=== PATIENT | male | born 1945 | race African-American/Black ===

== ENCOUNTER 2017-03-21 21:13 | Observation (INO) | payer OTHER ==
[2017-03-21 22:08] VITALS: BMI 25.8
[2017-03-21] MEDS ORDERED: SODIUM CHLORIDE 0.9% 500 ML INFUS.BAG IV ONE (22:59)
--- NOTE | 2017-03-21 22:59 | PDOC ---
History of Present Illness <Kristian Virgen - Last Filed: 03/22/17 00:10> <Radha Zhou - Last Filed: 03/22/17 01:54> - General Chief Complaint: Syncope/Near Syncope Stated Complaint: SYNCOPE/NEARSYNCOPE Time Seen by Provider: 03/21/17 22:13 Past History - Past Medical History COPD: No - Suicide/Smoking/Psychosocial Hx Smoking History: Never smoked <Kristian Virgen - Last Filed: 03/22/17 00:10> <Radha Zhou - Last Filed: 03/22/17 01:54> - Past Medical History Allergies/Adverse Reactions: Allergies Allergy/AdvReac Type Severity Reaction Status Date / Time No Known Allergies Allergy Unverified 03/21/17 22:06 *Physical Exam - Vital Signs Last Vital Signs Temp Pulse Resp BP Pulse Ox 97.8 F 78 18 106/51 98 03/21/17 22:06 03/21/17 22:06 03/21/17 22:06 03/21/17 22:06 03/21/17 22:06 <Kristian Virgen - Last Filed: 03/22/17 00:10> - Vital Signs Last Vital Signs Temp Pulse Resp BP Pulse Ox 97.8 F 78 18 106/51 99 03/21/17 22:06 03/21/17 22:06 03/21/17 22:06 03/21/17 22:06 03/21/17 22:15 <Radha Zhou - Last Filed: 03/22/17 01:54> ED Treatment Course - LABORATORY CBC & Chemistry Diagram: 03/21/17 22:45 03/21/17 22:45 <Kristian Virgen - Last Filed: 03/22/17 00:10> - LABORATORY CBC & Chemistry Diagram: 03/21/17 22:45 03/21/17 22:45 - ADDITIONAL ORDERS Additional order review: Laboratory Results 03/21/17 03/21/17 03/21/17 22:45 22:45 22:45 PT with INR 12.90 H INR 1.14 Sodium 142 Potassium 3.6 Chloride 104 Carbon Dioxide 28 Anion Gap 10 BUN 20 H Creatinine 1.2 Creat Clearance w eGFR 59.86 Random Glucose 78 Calcium 8.7 Magnesium 2.3 Total Bilirubin 0.6 AST 20 ALT 26 Alkaline Phosphatase 82 Creatine Kinase 276 Creatine Kinase Index 0.9 CK-MB (CK-2) 2.572 Troponin I 0.05 Total Protein 6.8 Albumin 3.4 03/21/17 22:45 RBC 4.26 MCV 96.7 H MCHC 33.9 RDW 15.0 MPV 9.6 Neutrophils % 86.7 H Lymphocytes % 7.6 L Monocytes % 5.2 Eosinophils % 0.4 Basophils % 0.1 - Medications Given in the ED: ED Medications Discontinued Medications Generic Name Dose Route Start Last Admin Trade Name Freq PRN Reason Stop Dose Admin Sodium Chloride 1,000 ml 03/21/17 22:59 03/21/17 23:00 Normal Saline - IV 03/21/17 23:00 1,000 ml ONCE ONE Administration <Radha Zhou - Last Filed: 03/22/17 01:54> Medical Decision Making - Medical Decision Making 03/21/17 22:59 72-year-old male with a history of hypertension and BPH presents with a syncopal episode. Vitals within normal limits. Exam within normal limits, other than dry mucous membranes. Given the absence of a prodrome, the symptoms are somewhat concerning for cardiac syncope. DDx also includes vasovagal syncope vs dehydration. Plan: -EKG -labs -cxr -ivf -obs 03/22/17 00:10 Labs wnl. XR pending. Pt to be admitted to [facility] obs for syncope. Spoke with Dr. Montanez, will obtain CTH and dimer for further work up. Case discussed in detail with admitting physician including history, physical exam and ancillary studies. Admitting physician has assumed care for the patient, will follow all pending diagnostics and will complete the evaluation and treatment. <Kristian Virgen - Last Filed: 03/22/17 00:10> - Medical Decision Making 03/22/17 01:[address] without contrast, read and reviewed by Imaging [facility]. FINDINGS: Old left frontal infarct. No hemorrhage. No mass. Chronic microvascular changes in the cerebral white matter. Osseous structures are intact THIS DOCUMENT HAS BEEN ELECTRONICALLY SIGNED Cliff Reddy MD 03/22/2017 01:48 EST <Radha Zhou - Last Filed: 03/22/17 01:54> *DC/Admit/Observation/Transfer - Discharge Dispostion Admit: Yes - Attestations Physician Attestion: 03/22/17 00:11 I, Dr. Kristian Virgen MD, attest that this document has been prepared under my direction and personally reviewed by me in its entirety. I further attest, that it accurately reflects all work, treatment, procedures and medical decision -making performed by me. <Kristian Virgen - Last Filed: 03/22/17 00:10> <Radha Zhou - Last Filed: 03/22/17 01:54> Diagnosis at time of Disposition: Syncope - Discharge Dispostion Condition at time of disposition: Stable
[2017-03-21 23:02] LABS: BASO % 0.1 % (0-2.0); EOS % 0.4 % (0-4.5); LYMPH # 0.7 (8-40); MCH 32.8 pg (25.7-33.7); MCHC 33.9 g/dl (32.0-35.9); MEAN CELL VOLUME 96.7 fl (80-96); MEAN PLT VOLUME 9.6 fl (7.5-11.1); MONO # 0.5 # (3.8-10.2); NEUT # 7.8 # (42.8-82.8); NEUT % 86.7 % (42.8-82.8); PLATELET COUNT 139 K/MM3 (134-434)
[2017-03-21 23:10] LABS: INR 1.14 (0.82-1.09); PROTHROMBIN TIME (PATIENT) 12.9 SEC (9.98-11.88)
[2017-03-21 23:30] LABS: ALBUMIN 3.4 g/dl (3.4-5.0); ANION GAP 10 (8-16); CALCIUM 8.7 mg/dL (8.5-10.1); CO2 28 mmol/L (21-32); CREATININE 1.2 mg/dL (0.7-1.3); GLUCOSE,RANDOM 78 mg/dL (74-106); SGOT/AST 20 U/L (15-37); SGPT/ALT 26 U/L (12-78)
[2017-03-21 23:34] LABS: ALK PHOS 82 U/L (45-117); BILIRUBIN,TOTAL 0.6 mg/dL (0.2-1.0); CPK 276 IU/L (39-308); TOT PROT 6.8 g/dl (6.4-8.2); TROPONIN I 0.05 ng/ml (0.00-0.05)
--- NOTE | 2017-03-22 00:16 | HP ---
Admitting History and Physical - Admission Chief Complaint: syncope and collapse History Source: Patient, Family Member Limitations to Obtaining History: No Limitations - Smoking History Smoking history: Never smoked Home Medications - Allergies Allergies/Adverse Reactions: Allergies Allergy/AdvReac Type Severity Reaction Status Date / Time No Known Allergies Allergy Unverified 03/21/17 22:06 Review of Systems - Review of Systems Constitutional: reports: No Symptoms Eyes: reports: No Symptoms HENT: reports: No Symptoms Neck: reports: No Symptoms Cardiovascular: reports: No Symptoms Respiratory: reports: No Symptoms Gastrointestinal: reports: No Symptoms Neurological: reports: Syncope Endocrine: reports: No Symptoms Physical Examination Vital Signs: Vital Signs Temperature 97.8 F 03/21/17 22:06 Pulse Rate 78 03/21/17 22:06 Respiratory Rate 18 03/21/17 22:06 Blood Pressure 106/51 03/21/17 22:06 O2 Sat by Pulse Oximetry (%) 98 03/21/17 22:06 Constitutional: Yes: Well Nourished, No Distress, Calm Eyes: Yes: WNL, Conjunctiva Clear, EOM Intact HENT: Yes: WNL, Atraumatic, Normocephalic Neck: Yes: WNL, Supple, Trachea Midline Cardiovascular: Yes: WNL, Regular Rate and Rhythm, S1, S2 (patient had bigeminal pulses on exam) Respiratory: Yes: WNL, Regular, CTA Bilaterally Gastrointestinal: Yes: WNL, Normal Bowel Sounds ...Rectal Exam: Yes: Deferred Musculoskeletal: Yes: WNL Extremities: Yes: WNL Edema: No Peripheral Pulses WNL: Yes Integumentary: Yes: WNL Neurological: Yes: WNL, Alert, Oriented ...Motor Strength: WNL Labs: CBC, BMP 03/21/17 22:45 03/21/17 22:45 Imaging - Results EKG: Image Reviewed (sinus rhythm with bigeminal APC,) Problem List - Problems (1) Syncope and collapse Assessment/Plan: hypotension vs abnormal cardiac rhythm - admit to cardiac tele - hold BP meds - monitor for abnormal cardiac rhythm - cardiology evaluation - obtain a head CT scan - obtain D-dimer to r/o thromboembolic events, if positive CTA to r/o Pulmonary embolism is warranted - trend troponin x 2 then stop Code(s): R55 - SYNCOPE AND COLLAPSE (2) Hypertension Assessment/Plan: controlled with micardis hold if BP is < 120 Code(s): I10 - ESSENTIAL (PRIMARY) HYPERTENSION (3) Bigeminal pulse Assessment/Plan: patient has premature atrial contraction with bigeminal pulse cardiology evaluation Code(s): R00.8 - OTHER ABNORMALITIES OF HEART BEAT (4) PAC (premature atrial contraction) Assessment/Plan: cardiac evaluation Code(s): I49.1 - ATRIAL PREMATURE DEPOLARIZATION
[2017-03-22 10:44] LABS: MCH 31.6 pg (25.7-33.7); MCHC 32.7 g/dl (32.0-35.9); MEAN CELL VOLUME 96.6 fl (80-96); MEAN PLT VOLUME 9.5 fl (7.5-11.1); PLATELET COUNT 142 K/MM3 (134-434); RDW 14.4 % (11.9-15.9); WHITE BLOOD COUNT 5.1 K/mm3 (4.0-10.0)
[2017-03-22 10:46] LABS: ALBUMIN 3.2 g/dl (3.4-5.0); ANION GAP 6 (8-16); BILIRUBIN,TOTAL 0.8 mg/dL (0.2-1.0); CALCIUM 8.4 mg/dL (8.5-10.1); CHOLESTEROL 140 mg/dL (50-200); CO2 28 mmol/L (21-32); CREATININE 0.8 mg/dL (0.7-1.3); GLUCOSE,RANDOM 89 mg/dL (74-106); MAGNESIUM 2.2 mg/dL (1.8-2.4); SGOT/AST 16 U/L (15-37); SGPT/ALT 24 U/L (12-78); TOT PROT 6.4 g/dl (6.4-8.2)
[2017-03-22 10:53] LABS: ALK PHOS 80 U/L (45-117); THYROID STIMULATING HORMONE 0.75 uIU/ml (0.358-3.74); TROPONIN I 0.05 ng/ml (0.00-0.05)
--- NOTE | 2017-03-22 13:08 | EKG ---
Test Reason : Blood Pressure : / mmHG Vent. Rate : 088 BPM Atrial Rate : 088 BPM P-R Int : 164 ms QRS Dur : 094 ms QT Int : 370 ms P-R-T Axes : 065 -40 010 degrees QTc Int : 447 ms SINUS RHYTHM WITH MARKED SINUS ARRHYTHMIA LEFT AXIS DEVIATION ABNORMAL ECG NO PREVIOUS ECGS AVAILABLE Confirmed by MD Jorge, Jung ([id number]) on 03/22/2017 1:08:44 PM Referred By: Confirmed By:Jung Patel MD
--- NOTE | 2017-03-22 15:28 | PN ---
Physical Exam: SUBJECTIVE: Briefly, 72yo M with only history of HTN and DM who presented to the ED after a syncopal episode. Pt remembers prior to the episode that he had breakfast and only one glass of orange juice. Pt then began to cook with his family for [employer] and when he sat down he syncopized. Pt was told when he came to by family members that he was caught and never hit the ground. Pt reports being of normal mentation after his syncopal event. Prior to his syncopal event pt denies any dizziness/lightheadedness, aura's, visual disturbances, hearing disturbances, CP/discomfort, SOB, palpiations, or any urinary incontinence. Pt denies any recent changes in his antihypertensive medications. Currently pt feels at baseline and has not had any syncopal events. OBJECTIVE: Vital Signs Period Temp Pulse Resp BP Sys/Singer Pulse Ox Last 24 Hr 97.8 F-98.1 F 58-78 16-18 106-136/51-74 98-100 GENERAL: NAD, awake, alert, and fully oriented, pleasant, laying comfortably in bed HEENT: NC/AT, No JVD, no nystagmus, EOMI, OLAYINKA, moist mucosa, no thyromegaly, no lymphadenopathy LUNGS: CTA bilaterally, no wheezes, rhonchi, or rales noted. No accessory muscle use. HEART: Regular rate with intermittant bigeminal rhythm noted, S1, S2 without murmur noted. No carotid bruits auscultated ABDOMEN: Soft, nontender, nondistended, normoactive bowel sounds, no guarding, no hepatomegaly, no masses. EXTREMITIES: 2+ DP pulses, warm, no edema. ROM intact. Cap refill <2sec NEUROLOGICAL: Cranial nerves II through XII grossly intact. Reflexes 2/4 throughout. Strength 5/5 in all limbs, sensation intact in both upper and lower extrmities. Normal speech, gait not observed. PSYCH: Normal mood, normal affect. SKIN: Warm, dry, normal turgor, no rashes or lesions noted Laboratory Results - last 24 hr 03/21/17 03/21/17 03/21/17 22:45 22:45 22:45 WBC 9.0 RBC 4.26 Hgb 14.0 Hct 41.2 MCV 96.7 H MCH 32.8 MCHC 33.9 RDW 15.0 Plt Count 139 MPV 9.6 Neutrophils % 86.7 H Lymphocytes % 7.6 L Monocytes % 5.2 Eosinophils % 0.4 Basophils % 0.1 PT with INR 12.90 H INR 1.14 D-Dimer Sodium 142 Potassium 3.6 Chloride 104 Carbon Dioxide 28 Anion Gap 10 BUN 20 H Creatinine 1.2 Creat Clearance w eGFR 59.86 Random Glucose 78 Calcium 8.7 Magnesium Total Bilirubin 0.6 AST 20 ALT 26 Alkaline Phosphatase 82 Creatine Kinase 276 Creatine Kinase Index 0.9 CK-MB (CK-2) 2.572 Troponin I 0.05 Total Protein 6.8 Albumin 3.4 Triglycerides Cholesterol Total LDL Cholesterol HDL Cholesterol TSH 03/21/17 03/22/17 03/22/17 22:45 00:23 10:00 WBC 5.1 D RBC 4.27 Hgb 13.5 Hct 41.2 MCV 96.6 H MCH 31.6 MCHC 32.7 RDW 14.4 Plt Count 142 MPV 9.5 Neutrophils % Lymphocytes % Monocytes % Eosinophils % Basophils % PT with INR INR D-Dimer 229 Sodium Potassium Chloride Carbon Dioxide Anion Gap BUN Creatinine Creat Clearance w eGFR Random Glucose Calcium Magnesium 2.3 Total Bilirubin AST ALT Alkaline Phosphatase Creatine Kinase Creatine Kinase Index CK-MB (CK-2) Troponin I Total Protein Albumin Triglycerides Cholesterol Total LDL Cholesterol HDL Cholesterol TSH 03/22/17 10:00 WBC RBC Hgb Hct MCV MCH MCHC RDW Plt Count MPV Neutrophils % Lymphocytes % Monocytes % Eosinophils % Basophils % PT with INR INR D-Dimer Sodium 141 Potassium 3.9 Chloride 107 Carbon Dioxide 28 Anion Gap 6 L BUN 21 H Creatinine 0.8 D Creat Clearance w eGFR > 60 Random Glucose 89 Calcium 8.4 L Magnesium 2.2 Total Bilirubin 0.8 D AST 16 ALT 24 Alkaline Phosphatase 80 Creatine Kinase Creatine Kinase Index CK-MB (CK-2) Troponin I 0.05 Total Protein 6.4 Albumin 3.2 L Triglycerides 35 Cholesterol 140 Total LDL Cholesterol 63 HDL Cholesterol 77 H TSH 0.75 ASSESSMENT/PLAN: 72yo M with only history of HTN and BPG presenting to ER s/p syncopal event with unknown etiology. 1) Syncope --Carotid dopplers: No significant stenosis with time delay between peak velocities; either technical abnormality, but cannot rule out arrhythmia --Electrolytes WNL --Doubt seizure activity due to history; doubt carotid hypersensitivity --Echocardiogram follow-up --Orthostatics to be done --Cardiac monitoring --D-dimer WNL at 227 --Most likely due to antihypertensive medication administration in the setting of lack of proper hydration 2) LIZET --Holding diuresis --Will repeat labs 3) BPH Continue Flomax --Monitor for signs of volume contraction FEN: Fluids: None currently needed due to PO tolerance; encourage fluid intake Electrolyte abnormalities: None currently Nutrition: Regular diet PPX: DVT - Early ambulation Dispo: D/c planning in AM if improved or without acquisitions analyst events. Pt understands and in agreement Case discussed with Dr. Johnathan Ashley, DO - Internal Medicine PGY-1 Visit type - Emergency Visit Emergency Visit: No - New Patient This patient is new to me today: Yes Date on this admission: 03/22/17 - Critical Care Critical Care patient: No
--- NOTE | 2017-03-22 17:35 | PN ---
Teaching Attending Note Name of Resident: Victor Hugo Ashley ATTENDING PHYSICIAN STATEMENT I saw and evaluated the patient. I reviewed the resident's note and discussed the case with the resident. I agree with the resident's findings and plan as documented. SUBJECTIVE:currently asymptomatic. states he was in normal state of health prior to episode. that his son in law caught him and lowered him to the floor. that he had no symptoms prior to or after the event. was not confused when waking up. denies CP, SOB, fever, chills, palpitaitons, N/V/C/D, dizzyness, blurred vision. last change to BP med was 2 years ago. states he is compliant OBJECTIVE: Last Vital Signs Temp Pulse Resp BP Pulse Ox 98.3 F 76 16 140/85 100 03/22/17 15:58 03/22/17 15:58 03/22/17 15:58 03/22/17 15:58 03/22/17 15:58 General NAD HEENT no nystagmus CV S1 S2 RRR no murmur/rub/gallop no carotid bruit Lungs CTA B/L no wheezing/rales/rhonchi ASSESSMENT AND PLAN: 72yo M with PMH HTN and BPH presented to the ER after syncope x2 1. Syncope- tele observation. cardiac enzymes neg x2. echo and carotid doppler pending. check orthostatics. possible dehydration. hold diuretic. 2. LIZET- improved. hold diuretic. repeat 3. BPH- will re-start flomax although this can also lead to orthostatic hypotension 4. DVT ppx- EAM 5. d/c planning in AM if improved. case spoke with present. verbalized understanding and agreement
[2017-03-23] MEDS ORDERED: TAMSULOSIN HCL 0.4 MG CAP.ER.24H (FP) PO SCH (08:30)
[2017-03-23 09:22] LABS: BASO % 0.4 % (0-2.0); EOS # 0.1 # (0-4.5); EOS % 1.5 % (0-4.5); LYMPH # 1.2; MCH 31.5 pg (25.7-33.7); MCHC 32.6 g/dl (32.0-35.9); MEAN CELL VOLUME 96.5 fl (80-96); MEAN PLT VOLUME 9.3 fl (7.5-11.1); MONO # 0.4 #; NEUT # 2.5 #; NEUT % 59.9 % (42.8-82.8); PLATELET COUNT 148 K/MM3 (134-434); RDW 14.7 % (11.9-15.9); WHITE BLOOD COUNT 4.2 K/mm3 (4.0-10.0)
[2017-03-23] MEDS ORDERED: LISINOPRIL 10 MG TABLET (FP) PO SCH (10:00)
[2017-03-23 10:02] LABS: ALBUMIN 3.3 g/dl (3.4-5.0); ALK PHOS 84 U/L (45-117); ANION GAP 8 (8-16); BILIRUBIN,TOTAL 0.7 mg/dL (0.2-1.0); CALCIUM 8.4 mg/dL (8.5-10.1); CO2 27 mmol/L (21-32); CREATININE 0.9 mg/dL (0.7-1.3); GLUCOSE,RANDOM 117 mg/dL (74-106); MAGNESIUM 2.1 mg/dL (1.8-2.4); SGOT/AST 19 U/L (15-37); SGPT/ALT 27 U/L (12-78); TOT PROT 6.8 g/dl (6.4-8.2)
[2017-03-23] MEDS ORDERED: METOPROLOL TARTRATE 5 MG/5 ML VIAL IVPUSH ONE (10:10)
[2017-03-23 10:59] VITALS: PULSE 98
[2017-03-23] MEDS ORDERED: METOPROLOL SUCCINATE 25 MG TAB.SR.24H (FP) PO SCH (11:45)
[2017-03-23] MEDS ORDERED: APIXABAN 5 MG TABLET PO SCH (11:45)
--- NOTE | 2017-03-23 11:51 | PN ---
Teaching Attending Note Name of Resident: Victor Hugo Ashley ATTENDING PHYSICIAN STATEMENT I saw and evaluated the patient. I reviewed the resident's note and discussed the case with the resident. I agree with the resident's findings and plan as documented. SUBJECTIVE:asymptomatic. states he felt his heart racing slightly this AM while at rest but then went away on its own. deneis CP, SOB, fever, chills, palpitations, LOC or syncope OBJECTIVE: Last Vital Signs Temp Pulse Resp BP Pulse Ox 98.2 F 98 H 16 131/84 98 03/23/17 09:00 03/23/17 09:00 03/23/17 09:00 03/23/17 09:00 03/23/17 09:00 General NAD HEENT no nystagmus CV S1 S2 irregular no murmur/rub/gallop no carotid bruit Lungs CTA B/L no wheezing/rales/rhonchi ASSESSMENT AND PLAN: 72yo M with PMH HTN and BPH presented to the ER after syncope x2 1. Syncope-likley due to afib now seen on monitor. start metoprolol XL 25mg and monitor HR. orthostatics negative 2. Afib with RVR- HR 128 this AM. improved on its own without medication. [id number] 2. counseled on starting anticoagulation. risks of medication discussed including risk of bleeding and fatal bleed and lack of reversal agent. informed him to abstain or minimize ETOH use while on medication. start metoprolol for HR control. pt is asymptomatic and HR been mostly controlled. 2. LIZET- improved. hold diuretic. resolved 3. HTN- controlled. will d/c lisinopril/HCTZ and switch to metoprolol. 3. BPH- on flomax 4. DVT ppx- EAM 5. d/c home with new medications. counseled on importance of medication compliance and follow up. cancel admission order, placed incorrectly. pt should be observation
--- NOTE | 2017-03-23 13:10 | EKG ---
Test Reason : Blood Pressure : / mmHG Vent. Rate : 090 BPM Atrial Rate : 166 BPM P-R Int : 000 ms QRS Dur : 092 ms QT Int : 344 ms P-R-T Axes : 000 -44 002 degrees QTc Int : 420 ms ATRIAL FIBRILLATION LEFT AXIS DEVIATION SEPTAL INFARCT , AGE UNDETERMINED ABNORMAL ECG WHEN COMPARED WITH ECG OF 22-MAR-2017 03:02, ATRIAL FIBRILLATION HAS REPLACED SINUS RHYTHM NONSPECIFIC T WAVE ABNORMALITY NOW EVIDENT IN LATERAL LEADS Confirmed by JAZZY GALO MD ([id number]) on 03/23/2017 1:10:13 PM Referred By: Catherine STATON Confirmed By:JAZZY GALO MD
--- NOTE | 2017-03-23 13:23 | EKG ---
Test Reason : Blood Pressure : / mmHG Vent. Rate : 077 BPM Atrial Rate : 077 BPM P-R Int : 166 ms QRS Dur : 092 ms QT Int : 374 ms P-R-T Axes : 071 -48 030 degrees QTc Int : 423 ms SINUS RHYTHM WITH PREMATURE ATRIAL COMPLEXES LEFT ANTERIOR FASCICULAR BLOCK ABNORMAL ECG WHEN COMPARED WITH ECG OF 21-MAR-2017 23:33, PREMATURE ATRIAL COMPLEXES ARE NOW PRESENT Confirmed by IRAJ STEVENSON, JAZZY ([id number]) on 03/23/2017 1:22:35 PM Referred By: Confirmed By:JAZZY GALO MD
[2017-03-23 15:14] VITALS: BP 104/70; TEMP 98.6
== END 2017-03-23 16:38 | disposition home or self-care (01) ==
LOC: JER 21:13 → UNDOADMOB 03-22 00:11 → JERBED 03-22 00:11 → INTOOBSV 03-22 00:17 → OBSVTOIN 03-22 00:17 → JERBED 03-22 11:41 → J4W 03-22 20:50 → JERBED 03-22 20:50 → J4W 03-22 20:50
PROVIDERS: ADMIT Internal Medicine; ATTEND Internal Medicine
PROC: 3E0337Z Introduction of Electrolytic and Water Balance Substance into Peripheral Vein, Percutaneous Approach (ICD-10-PCS; principal; 2017-03-22)
DX: R55 Syncope and collapse (principal); I10 Essential (primary) hypertension; R00.8 Other abnormalities of heart beat; I49.1 Atrial premature depolarization; E11.9 Type 2 diabetes mellitus without complications; N17.9 Acute kidney failure, unspecified; N40.0 Benign prostatic hyperplasia without lower urinary tract symptoms; I48.91 Unspecified atrial fibrillation
CPT/HCPCS: 36415; 70450-TC; 80053; 80061; 82550; 82553; 83721; 83735; 84443; 84484; 85025; 85027; 85379; 85610; 93005; 93010; 93306-TC; 93880-TC; 99285-25; G0378